=== PATIENT | female | born 2000 | race Caucasian/White ===

== ENCOUNTER 2023-08-28 07:58 | Day surgery (SDC) | payer OTHER ==
[2023-08-28 08:20] LABS: HCG URINE TEST NEGATIVE (NEGATIVE)
[2023-08-28 08:35] VITALS: RESP 16
[2023-08-28] MEDS ORDERED: CEFAZOLIN 2 GM-D5W BAG** 2 GM/50 ML ML IV ONE (08:35)
[2023-08-28] MEDS ORDERED: Lactated Ringers 1,000 ML IV ONE (08:35)
[2023-08-28] MEDS: Lactated Ringers 1,000 ML IV SCH (08:40)
[2023-08-28] MEDS: CEFAZOLIN 2 GM-D5W BAG** 2 GM/50 ML ML IV SCH (08:40)
[2023-08-28] MEDS ORDERED: Versed 2 MG/2 ML Injection ONE (09:49)
[2023-08-28] MEDS ORDERED: DIPRIVAN 200 MG/20 ML IV ONE (09:49)
[2023-08-28] MEDS ORDERED: SUBLIMAZE 100 MCG/2 ML ONE ×2 (09:49→10:37)
[2023-08-28] MEDS ORDERED: Xylocaine-Mpf 2% 5 Ml Vial ONE (09:49)
[2023-08-28] MEDS ORDERED: Naropin 0.5% 30 ML VIAL ONE (09:50)
[2023-08-28] MEDS ORDERED: Marcaine 0.5%/Epinephrine 10 ML ONE (09:54)
[2023-08-28] MEDS ORDERED: Zemuron 100 MG/10 ML ONE (10:40)
[2023-08-28] MEDS ORDERED: Epinephrine Preservative Free 1 MG/ML ONE (10:41)
[2023-08-28] MEDS ORDERED: Decadron 4 MG INJ ONE (10:41)
[2023-08-28] MEDS ORDERED: Zofran 4 MG/2 ML VIAL ONE (10:41)
[2023-08-28] MEDS ORDERED: BRIDION 200MG/2ML IV ONE (13:11)
--- NOTE | 2023-08-28 13:29 | XRAY ---
Indication: Right ankle arthroscopy with synovectomy and lateral stabilization. Intraoperative fluoroscopy provided for 57 seconds. Multiple digital spot images submitted for interpretation demonstrates 3 lateral malleolus orthopedic K wires. Correlate with intraoperative findings/report. Also multiple cine images right ankle obtained with manual manipulation.
[2023-08-28] MEDS ORDERED: Compazine 10 MG/2 ML IV PRN (14:38)
[2023-08-28] MEDS: Zofran 4 MG/2 ML VIAL IV STA (14:39)
[2023-08-28 14:50] VITALS: BP 133/72; PULSE 96; TEMP 98.2; O2SAT 96
--- NOTE | 2023-08-28 15:21 | XRAY ---
57 seconds of fluoroscopy was used in surgery for a right ankle arthroscopy with synovectomy and lateral stabilization.
--- NOTE | 2023-08-29 10:34 | OP ---
SURGERY DATE/TIME: 08/28/2023 1119 PREOPERATIVE DIAGNOSES: 1) Right ankle pain. 2) Right ankle joint effusion with synovitis. 3) Right ankle instability, chronic. POSTOPERATIVE DIAGNOSES: 1) Right ankle pain. 2) Right ankle joint effusion with synovitis. 3) Right ankle instability, chronic. PROCEDURES: 1) Ankle arthroscopy with synovectomy right ankle complete. 2) Double ligament lateral ankle ligament repair. SURGEON: Saravanan Mike DPM. SLABBER: None. ANESTHESIA: General with a preoperative block consisting of a popliteal and saphenous block to the right lower extremity. See anesthesia report for details. HEMOSTASIS: Thigh tourniquet set to 300 mm of Mercury for 40 total tourniquet minutes. ESTIMATED BLOOD LOSS: Approximately 5 cc. MATERIALS: James Internal Brace, 2.9 JuggerKnot with BroadBand, 2.9 Betta Link as well as 1.45 JuggerKnot anterior talofibular ligament repair, 4-0 Monocryl, 3-0 Nylon. INJECTABLES: See anesthesia report for details. INDICATION FOR SURGERY: Mariana is a very pleasant 22-year-old female very well known to my service for multiple issues of pain as a result of her chronic ankle instability. The patient is largely active and had multiple sprains in her long-standing history. As a result, this is a big generator pain for her and a consistent source of the pain that she has been experiencing. She has failed conservative therapy with the use of bracing, orthotics, anti-inflammatory, injections and modifying activity. As a result, the patient has had no long-term relief. She recently had an additional rotational injury and her lateral ankle ligament has been out for a long time and she has been symptomatic as a result. The patient also does have a positive Leslie's test at the anterior aspect of the ankle indicative of synovitis. As far as her procedure, the patient is amenable to proceeding with an ankle arthroscopy consisting of a synovectomy and assessment of the joint surface as well as a lateral ankle stabilization. The patient understands all risks, complications and benefits of surgical intervention at this time including but not limited to infection, hematoma, seroma, possibility of delayed wound healing, nonwound healing and possible need for further surgical intervention at a later date. No guarantees were provided as to the outcome of surgical intervention. It is at this time we decided to proceed. DESCRIPTION OF PROCEDURE AND FINDINGS: The patient is brought into the postoperative anesthesia care unit prior to the procedure and provided a popliteal and saphenous block for postoperative pain control. Following this, the patient was brought into the OR and placed on the OR table in the supine position. General anesthesia was administered until the patient was adequately sedated. A well-padded thigh tourniquet was applied to the patient's right ankle. At this time, the right lower extremity was prepped and draped in the typical sterile fashion and lowered onto the surgical field. At this time, attention was directed to the medial and lateral malleoli where lines were drawn to charley out the landmarks across the ankle joint and palpable dell where the ankle dorsiflexes was identified and lines were drawn connecting these structures. The anteromedial portal was established just medial to the tibialis anterior tendon. From that standpoint inflation needle with lactated Ringer's was able to insufflate the foot until the foot dorsiflexed and approximately 15 cc of fluid was insufflated within the joint. At this time, an 11 blade was utilized to make an incision just to the level of skin and this was carried down to the level of the ankle joint capsule utilizing a curved mini-Paredes puncturing the capsule allowing the insufflation fluid out. The obturator and trocar were introduced. The obturator was then removed and then the 30 degree 4.0 mm camera was introduced into the ankle joint and inspection of the joint was able to take place. From that standpoint, significant amount of the joint showed a good amount of synovitis this was not largely hemorrhagic. However, there was a good amount towards the lateral aspect of the capsule. The medial aspect of the capsule was completely clear of any synovitis. However there was some delamination of the talar cartilage anteriorly, this was cleaned from the joint. The anterior talofibular ligament was identified and shown to be in a scarred condition which was cleaned up utilizing the shaver. From that standpoint, inspection of the joint took place at the anterior aspect following the synovectomy showing medial, anteromedial, anterolateral and lateral gutters clear of any loose bodies, osteochondral defects or other concerning pathology. From that standpoint, the scope was withdrawn and Esmarch was utilized to exsanguinate the leg. The tourniquet was inflated to 300 mm of Mercury at this time. Under fluoroscopic guidance, landmarks were once again identified and a curvilinear incision was made over the lateral aspect of the ankle extending to the sinus tarsi. This is carried down making sure not to damage any neurovascular structures along the way. Any vascular structures encountered were Bovied and retracted off of the field and nerves that were identified were retracted out of the way gently. At this time the anterior talofibular ligament was identified. Prior to making the incision at the anterior talofibular ligament, an anterior drawer and talar tilt were taken demonstrating significant laxity on the talar tilt. However more significantly with the anterior drawer almost 50% dislocation of the ankle was possible. At that time decision was made to proceed with the lateral ankle stabilization portion of the procedure. Incision of the anterior talofibular ligament off of the fibular lip was performed as well as the calcaneofibular ligament. These ligaments were retracted out of the way and cleared off of the lateral wall of the talus. The lateral aspect of the talar body where it conjoins with the neck identified on the lateral and AP foot views. Her positioning was identified for the internal brace. A 2.9 JuggerKnot with BroadBand was introduced and gained excellent fixation within the bone this was then anchored into the fibula utilizing a 2.9 Betta Link with the foot in a neutral position with sufficient tension. From that standpoint, the Brostrom-Arriola portion of the procedure was then performed utilizing the remnant of the anterior talofibular ligament shortening this and then reaching this up utilizing two - 1.45 JuggerKnot into the distal aspect of the fibula which gained excellent improvement of the position of the anterior talofibular ligament and the calcaneofibular ligament distally. From that standpoint, this was then retrograded back into the inferior extensor retinaculum which helped improve the construct which was tied down and the knots were buried underneath the periosteum of the fibular lip. From that standpoint, a new anterior drawer and a new talar tilt was performed demonstrating significant improvement to the respect of the instability. Following this, copious amounts of sterile saline were utilized to flush the surgical site. 4-0 Monocryl and 3-0 Nylon were utilized to coapt the subcutaneous and skin edges in a simple interrupted everted-type fashion as well as a horizontal mattress-type fashion for the skin respectively. A dressing consisting of Betadine, Adaptic, 4x4, Kerlix and a well-padded posterior splint was applied to the patient's right ankle with the foot orthogonal relative to longitudinal axis of the leg. The patient was then reversed from anesthesia and returned to the postoperative anesthesia care unit with vital signs stable and vascular status intact. The patient handled the anesthesia as well as the procedure without significant complication. Postoperative orders as indicated in the patient's discharge chart.
== END 2023-08-28 15:00 | disposition home or self-care (01) ==
LOC: SDC 07:58
PROVIDERS: ATTEND Podiatrist Foot & Ankle Surgery
DX: M25.471 Effusion, right ankle (principal); S93.401A Sprain of unspecified ligament of right ankle, initial encounter; M25.571 Pain in right ankle and joints of right foot; M25.371 Other instability, right ankle
CPT/HCPCS: 27696; 29898; 64447; 64450; 73610; 76000; 76942; 81025; C1713; J0171; J0690; J1100; J2250; J2405; J2704; J2795; J3010